=== PATIENT | female | born 1990 | race Two or more races ===

== ENCOUNTER → 2019-10-27 | Outpatient (CLI) | payer SELFPAY ==
[~2019-10-27] MED LIST: GADOBENATE DIMEGLUMINE 529 MG/ML 10ML IV ONE
== END | disposition home or self-care (01) ==
LOC: MRI 14:54
DX: N32.89 Other specified disorders of bladder (principal); R10.2 Pelvic and perineal pain
CPT/HCPCS: 72197; A9577